=== PATIENT | male | born 1985 | race Caucasian/White ===

== ENCOUNTER 2022-05-25 04:27 | Emergency (ER) | payer MEDICAID, OTHER ==
[2022-05-25] MEDS ORDERED: SULFAM/TRIM 800/160 Prepack 2 PO ONE (04:54)
[2022-05-25] MEDS ORDERED: SULFAMETH/TRIMETH DS 800/160 MG TABLET PO STA (04:54)
[2022-05-25] MEDS ORDERED: CEPHALEXIN 250 MG Prepack 8 CAP BOTTLE PO STA (04:54)
[2022-05-25] MEDS ORDERED: cephALEXin 250 MG CAPSULE PO STA (04:54)
--- NOTE | 2022-05-25 05:04 | ED Physician Documentation ---
PD HPI SKIN - Stated complaint Stated Complaint: LEG WOUNDS - Chief complaint Chief Complaint: Wound - History obtained from History obtained from: Patient - Additional information Additional information: Is a 36-year-old male who admits to methamphetamine use presenting for evaluation of wounds to his lower extremities that been present for the past 2 weeks. He reports that it starts out as a small pustule and then the wounds start to increase in size and open up. He has multiple areas on bilateral lower extremities. He denies IV drug use. He denies fever, chest pain, difficulty breathing. He has also noticed swelling to bilateral legs since the onset of the rash. He notices that the swelling in his legs gets worse the more he walks around and gets better if he is able to elevate his legs. He has a significant other at the bedside who states that she has been putting Neosporin on the wounds and trying to keep them dry. She says they seem to do better when she allows them to air out and are not covered by a dressing. Review of Systems Constitutional: denies: Fever Cardiac: denies: Chest pain / pressure Respiratory: denies: Dyspnea GI: denies: Abdominal Pain Skin: reports: Rash Neurologic: denies: Headache PD PAST MEDICAL HISTORY - Present Medications Home Medications: Ambulatory Orders Medication Instructions Recorded Confirmed Sulfamethox/Trimeth 800/160 1 each PO BID #14 tablet 05/25/22 [Bactrim Ds 800/160] cephALEXin [Keflex] 500 mg PO Q6H #28 cap 05/25/22 - Allergies Allergies/Adverse Reactions: Allergies Allergy/AdvReac Type Severity Reaction Status Date / Time No Known Drug Allergies Allergy Verified 05/25/22 04:38 PD ED PE NORMAL - General General: Alert and oriented X 3, No acute distress, Well developed/nourished - HEENT HEENT: Atraumatic - Neck Neck: Supple, no meningeal sign - Cardiac Cardiac: RRR - Respiratory Respiratory: No respiratory distress, Clear bilaterally - Abdomen Abdomen: Soft, Non tender - Derm Derm: Other (Multiple shallow ulcerations with overlying scabbing to bilateral lower extremities with surrounding erythema, No fluctuance) - Extremities Extremities: No calf tenderness / cord, Other (Bilateral lower extremity edema) Results - Vitals Vitals: Vital Signs - 24 hr 05/25/22 05/25/22 04:31 05:17 Temperature 36.9 C 36.6 C Heart Rate 98 94 Respiratory 18 18 Rate Blood Pressure 128/95 H 127/85 H O2 Saturation 100 98 Oxygen O2 Source Room air PD Medical Decision Making - ED course ED course: Patient presenting for evaluation of bilateral lower extremity wounds.He admits to a history of meth use but denies IV drug use.He has multiple superficial wounds to the lower extremities with surrounding erythema. No fluctuance to suggest abscess or drainable collection. His vital signs are stable and he does not appear septic.Wound culture was sent and the patient was started on Bactrim and Keflex. He is advised on need for compliance with antibiotics as well as strict return precautions for any worsening symptoms. Departure - Departure Disposition: 01 Home, Self Care Clinical Impression: Multiple open wounds of lower leg Qualifiers: Encounter type: initial encounter Laterality: unspecified laterality Qualified Code(s): S81.809A - Unspecified open wound, unspecified lower leg, initial encounter Condition: Stable Instructions: ED Infec Skin Cellulitis Prescriptions: Sulfamethox/Trimeth 800/160 [Bactrim Ds 800/160] 1 each PO BID #14 tablet cephALEXin [Keflex] 500 mg PO Q6H #28 cap Comments: You have developed an infection to your legs causing open wounds. We have sent a culture of drainage from one of the wounds to identify the bacteria that is causing it. In the meanwhile I am starting you on 2 antibiotics 1 of which will cover for MRSA. Please make sure to take the antibiotics as prescribed. I sent the prescription to [facility] in [place].I would expect your symptoms to get better with the use of the antibiotics. If you notice any worsening symptoms such as fever, increased swelling or redness please return to the emergency department. Discharge Date/Time: 05/25/22 05:19
[2022-05-25 05:19] VITALS: BP 127/85
== END 2022-05-25 05:19 | disposition home or self-care (01) ==
LOC: ED 04:27
DX: L08.9 Local infection of the skin and subcutaneous tissue, unspecified (principal)
CPT/HCPCS: 87070; 87077; 87181; 87205; 99283; A9270

== ENCOUNTER 2022-05-31 22:04 | Emergency (ER) | payer SELFPAY ==
[2022-05-31 22:14] VITALS: BP 135/80
--- NOTE | 2022-05-31 22:33 | ED Physician Documentation ---
PD HPI SKIN - Stated complaint Stated Complaint: LEG INJ - Chief complaint Chief Complaint: Wound - History obtained from History obtained from: Patient, Family - History of Present Illness Timing - onset: How many weeks ago (3) Timing - duration: Weeks (3) Timing - details: Gradual onset, Still present in ED, Other (improved) Location: [facility] [place], [facility] Quality / character: Discolored, Crusted. No: Swelling, Draining Associated symptoms: No: Fever, Myalgias, Joint pain Contributing factors: Exposed to medication (hx of meth) Similar symptoms before: Diagnosis (skin abcess) Recently seen: Emergency Dept - Additional information Additional information: Kevin Ortega the fourth is a 36-year-old male who presented to the emergency department 6 days ago with lower extremity sores that he relates to use of methamphetamine. He was placed on sulfamethoxazole trimethoprim and cephalexin and he has had some improvement in his skin. He was asked to come b ack to the emergency department by our staff because the culture grew methicillin-resistant Staph aureus that was not sensitive to sulfamethoxazole trimethoprim. The culture also grew Strep A and sensitivities were not done on this organism. The patient has no specific complaints and indicates that his sores are much improved. He has a Review of Systems Constitutional: denies: Fever Respiratory: denies: Cough GI: denies: Vomiting Skin: reports: Lesions Musculoskeletal: denies: Extremity pain Neurologic: denies: Generalized weakness, Focal weakness, Numbness PD PAST MEDICAL HISTORY - Present Medications Home Medications: Ambulatory Orders Medication Instructions Recorded Confirmed Sulfamethox/Trimeth 800/160 1 each PO BID #14 tablet 05/25/22 [Bactrim Ds 800/160] cephALEXin [Keflex] 500 mg PO Q6H #28 cap 05/25/22 Clindamycin [Cleocin] 300 mg PO Q6H 7 Days #28 cap 05/31/22 - Allergies Allergies/Adverse Reactions: Allergies Allergy/AdvReac Type Severity Reaction Status Date / Time No Known Drug Allergies Allergy Verified 05/31/22 22:14 PD ED PE NORMAL - Vitals Vital signs reviewed: Yes (tachy and hypertensive mild ) - General General: Alert and oriented X 3, No acute distress, Well developed/nourished - HEENT HEENT: Atraumatic, PERRL, EOMI - Respiratory Respiratory: No respiratory distress - Derm Derm: Normal color, Warm and dry - Extremities Extremities: No deformity, No edema, Other (To both lower extremities there are dried round crusted eschars about one dozen total. largest is 3cm. without surrounding erythema and some skin breakdown. These appear to be healing superficial skin infection. No drainage no swelling.) - Psych Psych: Normal mood, Normal affect Results - Vitals Vitals: Vital Signs - 24 hr 05/31/22 22:09 Temperature 36.8 C Heart Rate 105 H Respiratory 16 Rate Blood Pressure 135/80 H O2 Saturation 100 Oxygen O2 Source Room air PD Medical Decision Making - ED course Complexity details: reviewed old records, considered differential, d/w patient, d/w family ED course: 36-year-old male with healing wounds to both lower legs was asked by our staff to come back to the emergency department when his culture grew methicillin- resistant Staph aureus that was not sensitive to sulfamethoxazole trimethoprim. It also grew a strep species and I suspect that this is why his lesions appear improved. The lesions present now are consistent with methicillin-resistant staph with some scaling of the skin. There is no evidence of abscess with these. The patient is prescribed clindamycin which the organism appears to be sensitive to. The patient has left the department without his aftercare instructions but he did get instruction that his medication would be E scribed to the [facility] in [place]. Departure - Departure Disposition: 01 Home, Self Care Clinical Impression: Multiple open wounds of lower leg Qualifiers: Encounter type: subsequent encounter Laterality: unspecified laterality Qualified Code(s): S81.809D - Unspecified open wound, unspecified lower leg, subsequent encounter Condition: Stable Instructions: ED Staph Infec Abx Tx Only Follow-Up: [facility] [place] [Provider Group] Prescriptions: Clindamycin [Cleocin] 300 mg PO Q6H 7 Days #28 cap Comments: Kevin today it looks like your wounds are healing and there were 2 organisms that were growing from the wounds. One was a strep which is likely susceptible to the antibiotics you are on. The other is a methicillin-resistant Staph aureus and we are treating you with clindamycin because this organism ended up being resistant to the antibiotics you are on. I have E scribed the clindamycin to the [facility] in [place]. I have given you a number of a clinic in [place] to follow-up with as needed. My expectation with treatment is continued improvement in these sores and the complete resolution will take more than a month.
== END 2022-05-31 22:40 | disposition home or self-care (01) ==
LOC: ED 22:04
DX: L98.8 Other specified disorders of the skin and subcutaneous tissue (principal); B95.62 Methicillin resistant Staphylococcus aureus infection as the cause of diseases classified elsewhere
CPT/HCPCS: 99282; 99283

== ENCOUNTER 2022-07-24 20:25 | Emergency (ER) | payer OTHER ==
[2022-07-24 20:50] VITALS: BP 138/99
--- NOTE | 2022-07-24 21:01 | ED Physician Documentation ---
History of Present Illness - Stated complaint Stated Complaint: FIT - Chief complaint Chief Complaint: Wound - Additonal information Additional information: 36-year-old male who has a history of MRSA infection is brought in by [place] [employer] for fit for confinement. The patient has been seen recently in this emergency department late May for lower extremity leg wounds which subsequently culture positive for MRSA. The patient last completed a course of clindamycin and reported that it helped the leg wounds but new ones have started to open up. He is also concerned that he will go into opioid withdrawal while incarcerated. He last used fentanyl just prior to arrest and being brought here to the ER. No fevers. Review of Systems Constitutional: denies: Fever Skin: reports: Lesions PD PAST MEDICAL HISTORY - Past Surgical History Past Surgical History: No - Present Medications Home Medications: Ambulatory Orders Medication Instructions Recorded Confirmed Mupirocin 2% Oint [Bactroban 2% 1 applic TOP BID #22 gm 07/24/22 Oint] Sulfamethox/Trimeth 800/160 1 each PO BID #14 tablet 07/24/22 [Bactrim Ds 800/160] - Allergies Allergies/Adverse Reactions: Allergies Allergy/AdvReac Type Severity Reaction Status Date / Time No Known Drug Allergies Allergy Verified 07/24/22 20:48 - Social History Does the pt smoke?: Yes Smoking Status: Current every day smoker Does the pt drink ETOH?: Yes Does the pt have substance abuse?: Yes Substance Use and Type: Meth, Heroin - Immunizations Immunizations are current?: Yes - POLST Patient has POLST: No PD ED PE EXPANDED - General General: Alert, No acute distress - Extremities Extremities: Other (Mildly swollen bilateral lower extremities. Multiple scabs on the anterior lower legs that appear well-healed however there are some open erythematous ulcerations on his posterior calf that are not draining. 2+ DP pulse) Results - Vitals Vitals: Vital Signs - 24 hr 07/24/22 20:41 Temperature 36.8 C Heart Rate 106 H Respiratory 20 Rate Blood Pressure 138/99 H O2 Saturation 100 Oxygen O2 Source Room air PD Medical Decision Making - ED course Complexity details: d/w patient ED course: 36-year-old male brought to the emergency department for evaluation of fit for confinement. He does have this history of MRSA. Recently had open wounds on the anterior lower legs that healed following a course of clindamycin. Subsequently is now developing some posterior calf ulcerations. Patient will be started on Bactrim and mupirocin ointment. He is concerned that he will enter into opioid withdrawal while incarcerated but he used just prior to becoming detained. Clinically he appears well without fevers. He is medically cleared for detention Departure - Departure Disposition: 01 Home, Self Care Clinical Impression: History of MRSA infection, Fentanyl use disorder, moderate, dependence Lower extremity ulceration Qualifiers: Laterality: unspecified laterality Non-pressure ulcer stage: limited to breakdown of skin Qualified Code(s): L97.901 - Non-pressure chronic ulcer of unspecified part of unspecified lower leg limited to breakdown of skin Prescriptions: Sulfamethox/Trimeth 800/160 [Bactrim Ds 800/160] 1 each PO BID #14 tablet Mupirocin 2% Oint [Bactroban 2% Oint] 1 applic TOP BID #22 gm Comments: You are medically cleared for confinement. You do have a history of MRSA. The wounds on your lower posterior calf can be dressed twice daily with an antibiotic ointment called mupirocin. I have written a prescription for Bactrim and antibiotic commonly used to treat MRSA infections. You should take this twice daily for the next week.
== END 2022-07-24 21:16 | disposition home or self-care (01) ==
LOC: ED 20:25
DX: F11.20 Opioid dependence, uncomplicated (principal); L97.901 Non-pressure chronic ulcer of unspecified part of unspecified lower leg limited to breakdown of skin; Z86.14 Personal history of Methicillin resistant Staphylococcus aureus infection; F17.200 Nicotine dependence, unspecified, uncomplicated
CPT/HCPCS: 99281; 99284

== ENCOUNTER 2023-05-15 06:33 | Outpatient (CLI) | payer SELFPAY | END 2023-05-15 23:59 | disposition short-term general hospital (02) | LOC: EMS 06:33 | DX: R41.82 Altered mental status, unspecified (principal); V48.5XXA Car driver injured in noncollision transport accident in traffic accident, initial encounter; Y92.414 Local residential or business street as the place of occurrence of the external cause | CPT/HCPCS: A0425; A0429 ==